=== PATIENT | male | born 1970 | race Caucasian/White ===

== ENCOUNTER 2022-03-12 09:03 | Outpatient (CLI) | payer OTHER, SELFPAY ==
[2022-03-12 14:07] LABS: Chloride* 104 mmol/L (96-114); Potassium* 4.6 mmol/L (3.6-5.1); Sodium* 140 mmol/L (135-149)
[2022-03-12 14:10] LABS: Blood Urea Nitrogen* 16 mg/dL (7-30); Carbon Dioxide* 29 mmol/L (20-32); Cholesterol* 171 mg/dL (90-199); Creatinine* 0.9 mg/dL (0.5-1.5); Estimated Glomerular Filt Rate 103 ml/min; Glucose* 104 mg/dL (60-115)
[2022-03-12 14:11] LABS: Calcium* 9.4 mg/dL (8.4-10.6); HDL Cholesterol* 47 mg/dL (>=40); LDL Cholesterol Calculated 96 mg/dL (<100); Triglycerides* 142 mg/dL (40-149)
== END 2022-03-12 09:04 | disposition home or self-care (01) ==
PROVIDERS: PCP Family Medicine; Visit Provider Family Medicine
DX: Z00.00 Encounter for general adult medical examination without abnormal findings (principal); I10 Essential (primary) hypertension; Z13.6 Encounter for screening for cardiovascular disorders
CPT/HCPCS: 80048; 80061

== ENCOUNTER 2022-04-03 13:26 | Outpatient (CLI) | payer OTHER, SELFPAY ==
--- OUTSIDE RECORDS SUMMARY | 2022-04-03 13:31 | XMS_ITS | Clinical Summary ---
:1970 Author Organization [employer] [facility] [place] [address] Care Team Providers Name Role Phone Vernal, [facility] Primary Care Provider Unavailable Allergies Active Allergy Reactions Severity Noted Date Comments Homeopathic Products Runny Nose 08/26/2007 Medications Medication Sig Dispensed Refills Start Date End Date Status albuterol HFA (PROAIR Inhale 2 Puffs by 8.5 g 0 11/28/2010 Active HFA) 90 mcg/Actuation mouth every 6 inhaler hours if needed for Wheezing. Every 4-6 hours as needed lisinopril (PRINIVIL; Take 10 mg by 0 Active ZESTRIL) 10 mg tablet mouth once daily. albuterol HFA Inhale 2 Puffs by 1 Inhaler 1 12/17/2014 Active (VENTOLIN HFA) 90 mouth every 4 mcg/actuation hours if needed inhalerIndications: for Shortness Of Asthma exacerbation Breath or Wheezing. Active Problems Problem Noted Date Smoker Allergic rhinitis Asthma Family History Medical History Relation Name Comments Heart Disease Father Hypertension Father Relation Name Status Comments Father Alive Mother Alive Social History Tobacco Use Types Packs/Day Years Used Date Smoking Tobacco: Every Day Cigarettes 1 Smokeless Tobacco: Never Comments: one and a half packs per day Alcohol Use Standard Drinks/Week Comments No 0 (1 standard drink = 0.6 oz pure alcoho l) Sex Assigned at Date Recorded Not on file Obstetrics History Last Filed Vital Signs Vital Sign Reading Time Taken Comments Blood Pressure 140/78 12/17/2014 12:48 AM CDT Pulse 84 12/17/2014 12:48 AM CDT Temperature 36.9 ??C (98.5 ??F) 12/17/2014 12:48 AM CDT Respiratory Rate 18 12/17/2014 12:48 AM CDT Oxygen Saturation 96% 12/17/2014 1:11 AM CDT Inhaled Oxygen Concentration - - Weight 150.1 kg (331 lb) 12/17/2014 12:48 AM CDT Height 193 cm (6' 3.98) 12/17/2014 12:48 AM CDT Body Mass Index 40.31 12/17/2014 12:48 AM CDT Plan of Treatment Health Maintenance Due Date Last Done Comments COVID-19 vaccine series (#1) 1970 Tdap 1981 Depression screening for age 12+ 1982 HIV for age 15-65 1985 BMI (ht and wt on same day) for age 18+ 02/18/1988 Hepatitis C screening for age 18-79 02/18/1988 Tetanus booster 1990 Colonoscopy through age 75 2015 Lipids for age 45-75 2015 Zoster (shingles) series for age 50+ (1 of 2) 02/18/2020 Influenza for age 50-64 12/21/2021 Results Not on filefrom Last 3 Months Insurance Payer Benefit Plan / Subscriber ID Effective Dates Phone Addre ss Type Group BLUE CROSS BLUE [employer]OSS OF [id number] 2014-Present [id number] [place] [address] (Work) [id number] Advance Directives Latest Code Status on File Code Status Date Activated Date Inactivated Comments Full Code 08/18/2007 7:07 PM 08/19/2007 12:43 AM Care Teams Gas Truck Driver Relationship Specialty Start Date End Date Iman Bolanos PCP - General 05/12/10
--- OUTSIDE RECORDS SUMMARY | 2022-04-03 13:31 | XMS_ITS | Encounter Summary ---
:1970 Author Organization [place] Address [facility] [address] Care Team Providers Name Role Phone Yessenia Cerna DO Primary Care Provider [phone] Reason for Visit Reason Comments Urgent Care URI 2 weeks head pressure behind ears, hoarse voice Sinus Problem Asthma Encounter Details Date Type Department Care Team Description 08/31/[address] [facility] Mayda Adams Acute sin usitis with Urgent Care Fariba Melgar PA-C symptoms > [id number] (Primary Dx) [place] [address] [phone] Social History Tobacco Use Types Packs/Day Years Used Date Smoking Tobacco: Every Day Cigarettes 1 20 Smokeless Tobacco: Former Alcohol Use Standard Drinks/Week Comments No 0 (1 standard drink = 0.6 oz pure alcoho l) last etoh 07/10/12 Sex Assigned at Date Recorded Not on file documented as of this encounter Last Filed Vital Signs Vital Sign Reading Time Taken Comments Blood Pressure 120/82 08/31/2017 4:30 PM CDT Pulse 69 08/31/2017 4:30 PM CDT Temperature 36.7 ??C (98 ??F) 08/31/2017 4:30 PM CDT Respiratory Rate 20 08/31/2017 4:30 PM CDT Oxygen Saturation 97% 08/31/2017 4:30 PM CDT Inhaled Oxygen Concentration - - Weight 146.1 kg (322 lb) 08/31/2017 4:30 PM CDT Height - - Body Mass Index 39.72 09/29/2012 2:08 PM CDT documented in this encounter Progress Notes Mayda Adams PA-C - 08/31/2017 4:25 PM CDT SUBJECTIVE: Jasvir Lisa is a 47 year old male presenting with a chief complaint of Chief Complaint Patient presents with ??? Urgent Care ??? URI 2 weeks head pressure behind ears, hoarse voice ??? Sinus Problem ??? Asthma He is a new patient of [facility]. URI Adult Onset of symptoms was 2 week(s) ago. Course of illness is worsening. Severity moderate Current and Associated symptoms: cough - productive, facial pain/pressure and nasal congestion Treatment measures tried include Tylenol/Ibuprofen, Decongestants and Antihistamine. Predisposing factors include HX of asthma. Review of Systems Constitutional: Negative for chills and fever. HENT: Positive for congestion, rhinorrhea, sinus pain and sinus pressure. Negative for ear pain and sore throat. Respiratory: Positive for cough. Negative for shortness of breath. Gastrointestinal: Negative for diarrhea, nausea and vomiting. Skin: Negative for rash. Past Medical History: Diagnosis Date ??? Mild intermittent asthma allergies ??? Psoriasis better off ETOH Family History Problem Relation Age of Onset ??? C.A.D. Father ??? Psoriasis Father ??? Asthma Paternal Grandfather ??? C.A.D. Paternal Grandfather Current Outpatient Prescriptions Medication Sig Dispense Refill ??? albuterol (ALBUTEROL) 108 (90 BASE) MCG/ACT inhaler Inhale 1-2 puffs into the lungs every 4 hours as needed PT NEEDS UPDATED ASTHMA ACTION PLAN (Patient not taking: Reported on 08/31/2017) 3 Inhaler3 ??? albuterol (PROAIR HFA/PROVENTIL HFA/VENTOLIN HFA) 108 (90 Base) MCG/ACT Inhaler Inhale 2 puffs into the lungs ??? cefuroxime (CEFTIN) 500 MG tablet Take 1 tablet (500 mg) by mouth 2 times daily for 7 days 14 tablet 0 ??? lisinopril (PRINIVIL/ZESTRIL) 10 MG tablet Take 10 mg by mouth Social History Substance Use Topics ??? Smoking status: Current Every Day Smoker Packs/day: 1.00 Years: 20.00 Types: Cigarettes ??? Smokeless tobacco: Former User ??? Alcohol use No Comment: last etoh 07/10/12 OBJECTIVE BP 120/82 Pulse 69 Temp 98 ??F (36.7 ??C) (Oral) Resp 20 Wt 322 lb (146.1 kg) SpO2 97% BMI 39.72 kg/m2 Physical Exam Constitutional: He appears well-developed and well-nourished. No distress. HENT: Head: Normocephalic and atraumatic. Right Ear: Tympanic membrane normal. Left Ear: Tympanic membrane normal. Nose: Right sinus exhibits maxillary sinus tenderness. Left sinus exhibits maxillary sinus tenderness. Mouth/Throat: Oropharynx is clear and moist. Eyes: EOM are normal. Pupils are equal, round, and reactive to light. Neck: Normal range of motion. Neck supple. Cardiovascular: Normal rate, regular rhythm and normal heart sounds. Pulmonary/Chest: Effort normal. No respiratory distress. He has wheezes (mild expiratory over the lung martins). He has no rales. Neurological: He is alert. Skin: Skin is warm and dry. Psychiatric: He has a normal mood and affect. Nursing note and vitals reviewed. Labs: No results found for this or any previous visit (from the past 24 hour(s)). X-Ray was not done. ASSESSMENT: ICD-10-CM 1. Acute sinusitis with symptoms > 10 days J01.90 cefuroxime (CEFTIN) 500 MG tablet Medical Decision Making: Differential Diagnosis: URI Adult/Peds: Sinusitis, Viral syndrome and Viral upper respiratory illness Serious Comorbid Conditions: Adult: Asthma PLAN: Acute sinusitis: Ceftin is prescribed. Tylenol or Motrin as needed for pain. Follow-up if any worsening symptoms. Patient understands and agrees with the plan. Mild Asthma: Stable. Keep monitoring. Follow-up if any worsening symptoms. Followup: If not improving or if condition worsens, follow up with your Primary Care Provider documented in this encounter Plan of Treatment Not on filedocumented as of this encounter Visit Diagnoses Diagnosis Acute sinusitis with symptoms > 10 days - Primary Acute sinusitis, unspecified documented in this encounter Care Teams Corking Machine Operator Relationship Specialty Start Date End Date Yessenia Cerna DO PCP - General Family Practice 05/31/11 07/20/18 AKBAR PATEL [address] [place] [address] documented as of this encounter
--- OUTSIDE RECORDS SUMMARY | 2022-04-03 13:31 | XMS_ITS | Encounter Summary ---
:1970 Author Organization [place] Address [facility] [place] [address] Care Team Providers Name Role Phone Yessenia Cerna DO Primary Care Provider [phone] Reason for Visit Reason Comments Dot Physical Encounter Details Date Type Department Care Team Description 12/12/[address] [facility] Prasanna Merino M D ERRONEOUS [facility] [address] ENCOUNTER--DISREGARD [address] [place] [address] (Primary Dx) [place] [address] [place], [place] [phone] (Wo rk) [address] [phone] Social History Tobacco Use Types Packs/Day Years Used Date Smoking Tobacco: Every Day Cigarettes 1 20 Smokeless Tobacco: Former Alcohol Use Standard Drinks/Week Comments No 0 (1 standard drink = 0.6 oz pure alcoho l) last etoh 07/10/12 Sex Assigned at Date Recorded Not on file documented as of this encounter Progress Notes Prasanna Merino MD - 12/12/2012 3:17 PM CDT Cancelled/no show documented in this encounter Plan of Treatment Not on filedocumented as of this encounter Visit Diagnoses Diagnosis ERRONEOUS ENCOUNTER--DISREGARD - Primary documented in this encounter Care Teams Scroll Shear Operator Relationship Specialty Start Date End Date Yessenia Cerna DO PCP - General Family Practice 05/31/11 07/20/18 [facility] NE[facility] FOSSIL [address] [place] [address] documented as of this encounter
--- OUTSIDE RECORDS SUMMARY | 2022-04-03 13:31 | XMS_ITS | Clinical Summary ---
:1970 Author Organization [facility] Address [address] [place] [address]. [place] [address] Care Team Providers Name Role Phone No Ref-Primary, Physician Primary Care Provider [phone] Allergies No known active allergies Medications Medication Sig Dispensed Refills Start Date End Date Status albuterol (ALBUTEROL) Inhale 1-2 puffs 3 Inhaler 3 07/04/2013 Active 108 (90 BASE) MCG/ACT into the lungs inhalerIndications: every 4 hours as Mild intermittent needed PT NEEDS asthma UPDATED ASTHMA ACTION PLAN albuterol (PROAIR Inhale 2 puffs 0 11/28/2010 Active HFA/PROVENTIL into the lungs HFA/VENTOLIN HFA) 108 (90 Base) MCG/ACT Inhaler lisinopril Take 10 mg by 0 Activ e (PRINIVIL/ZESTRIL) 10 mouth MG tablet FLOVENT HFA 110 MCG/ACT INHALE 2 PUFFS BY 0 06/14/19 20 Active inhaler MOUTH TWICE DAILY metFORMIN (GLUCOPHAGE) 0 04/20/2019 Active 850 MG tablet Active Problems Problem Noted Date CARDIOVASCULAR SCREENING; LDL GOAL LESS THAN 160 05/31 Mild intermittent asthma Overview: allergies Psoriasis Immunizations Name Administration Dates Next Due TDAP Vaccine (Boostrix) 12/29/2010 Family History Medical History Relation Comments CMaximoAMaximoD. Father Psoriasis Father Asthma Paternal Grandfather CMaximoAMaximoD. Paternal Grandfather Relation Status Comments Father Paternal Grandfather Social History Tobacco Use Types Packs/Day Years Used Date Smoking Tobacco: Every Day Cigarettes 1 20 Smokeless Tobacco: Former Alcohol Use Standard Drinks/Week Comments No 0 (1 standard drink = 0.6 oz pure alcoho l) last etoh 07/10/12 Sex Assigned at Date Recorded Not on file Last Filed Vital Signs Vital Sign Reading Time Taken Comments Blood Pressure 130/72 06/27/2019 1:25 PM BANKMAN Pulse 79 06/27/2019 1:25 PM BANKMAN Temperature 36.8 ??C (98.2 ??F) 06/27/2019 1:25 PM BANKMAN Respiratory Rate 20 08/31/2017 4:30 PM CDT Oxygen Saturation 96% 06/27/2019 1:25 PM BANKMAN Inhaled Oxygen Concentration - - Weight 146.1 kg (322 lb) 08/31/2017 4:30 PM CDT Height 191.8 cm (6' 3.5) 09/29/2012 2:08 PM CDT Body Mass Index 39.72 09/29/2012 2:08 PM CDT Plan of Treatment Health Maintenance Due Date Last Done Comments ADVANCE CARE PLANNING 1970 ANNUAL REVIEW OF HM ORDERS 1970 ASTHMA CONTROL TEST 1970 CT COLONOGRAPHY 1970 FIT-DNA (Cologuard) 1970 FIT 1970 FLEX SIG 1970 HEPATITIS B IMMUNIZATION (1 1970 of 3 - 3-dose series) LIPID 1970 YEARLY PREVENTIVE VISIT 1970 COVID-19 Vaccine (#1) 1970 COLONOSCOPY 02/18/1980 COLORECTAL CANCER SCREENING 02/18/1980 HIV SCREENING 1985 HEPATITIS C SCREENING 02/18/1988 ASTHMA ACTION PLAN 09/29/2013 09/29/2012, 12/29/2010 Pneumococcal Vaccine: 08/26/2015 08/25/2014 Pediatrics (0 to 5 Years) and At-Risk Patients (6 to 64 Years) (2 - PCV) LUNG CANCER SCREENING 02/18/2020 ZOSTER IMMUNIZATION (1 of 02/18/2020 2) DTAP/TDAP/TD IMMUNIZATION 12/29/2020 12/29/2010 (2 - Td or Tdap) PHQ-2 (once per calendar 04/22/2021 year) INFLUENZA VACCINE (#1) 2021 01/24/2019, 03/24/2018, 02/18/2017, Additional history exists IPV IMMUNIZATION Aged Out No longer eligi ble based on patient 's age to complete this topic MENINGITIS IMMUNIZATION Aged Out No longe r eligible based on patient 's age to complete this topic Insurance Payer Benefit Plan / Subscriber ID Effective Phone Address T ype Group Dates [facility] [id number] 2017-Pres [phone] [address] O OPEN ACCESS ent [address] [place] [address] Care Teams Spray Gun Operator Relationship Specialty Start Date End Date No Ref-Primary, Physician PCP - General 06/27/19
--- OUTSIDE RECORDS SUMMARY | 2022-04-03 13:31 | XMS_ITS | Encounter Summary ---
:1970 Author Organization [facility] Address [address] [place] [address]. [place] [address] Care Team Providers Name Role Phone Yessenia Cerna DO Primary Care Provider [phone] Reason for Visit Reason Comments Recheck Medication Asthma Encounter Details Date Type Department Care Team Description 09/29/2012 Office Visit [facility] Prasanna Merino M D Mild intermittent Clinic [address] asthma (Primary Dx) [address] [place] [address] [place], [place] [phone] (Wo rk) [address] [phone] Social History Tobacco Use Types Packs/Day Years Used Date Smoking Tobacco: Every Day Cigarettes 1 20 Smokeless Tobacco: Former Alcohol Use Standard Drinks/Week Comments No 0 (1 standard drink = 0.6 oz pure alcoho l) last etoh 07/10/12 Sex Assigned at Date Recorded Not on file documented as of this encounter Last Filed Vital Signs Vital Sign Reading Time Taken Comments Blood Pressure 144/78 09/29/2012 2:08 PM CDT Pulse 93 09/29/2012 2:08 PM CDT Temperature 37 ??C (98.6 ??F) 09/29/2012 2:08 PM CDT Respiratory Rate - - Oxygen Saturation 96% 09/29/2012 2:08 PM CDT Inhaled Oxygen Concentration - - Weight 155.4 kg (342 lb 11.2 oz) 09/29/2012 2:08 PM CDT Height 191.8 cm (6' 3.5) 09/29/2012 2:08 PM CDT Body Mass Index 42.27 09/29/2012 2:08 PM CDT documented in this encounter Patient Instructions Patient InstructionsPrasanna Merino MD - 09/29/2012 2:34 PM CDT Images from the original note were not included. [facility] To reach your care team during and after hours: [phone] To reach our pharmacy: [phone] Clinic Hours Our clinic hours are: Saturday 7:30 am to 7:00 pm Saturday 7:30 am to 5:00 pm Saturday 8:00 am to 12:00 pm Pharmacy Hours Our pharmacy hours are: Saturday - Saturday 8:00 am to 7:00 pm Saturday 9:00 am to 1:00 pm Saturday 9:00 am to 1:00 pm There is also information available at our web site: [email or web address] If your provider ordered any lab tests and you do not receive the results within 10 business days, please call the clinic. If you need a medication refill please contact your pharmacy. Please allow 2 business days for your refill to be completed. Our clinic offers telephone visits and e visits. Please ask one of your team members to explain more. Use [employer] (secure email communication and access to your chart) to send your primary care providera message or make an appointment. Ask someone on your Team how to sign up for [employer]. documented in this encounter Progress Notes Prasanna Merino MD - 09/29/2012 8:44 AM CDT SUBJECTIVE: Jasvir Lisa is a 42 year old male who presents to clinic today for the following health issues: Medication Followup of Asthma ?? Taking Medication as prescribed: yes ?? Side Effects: None ?? Medication Helping Symptoms: Yes Overall doing well, act = 21, has 2 chinese shepards who can increase sx if careful, albuterol works well, Since stopping etoh, psoriasis much improved Bilateral ankle swelling x 1 day - after being in unusual cramped position - better after 24-48 hrs - no cp - no sob - minimal indentation wrinkle - no pnd - no calf pain - works outside with physical work. BP Readings from Last 3 Encounters: 09/29/12 144/78 05/31/11 126/86 04/12/11 130/88 Wt Readings from Last 4 Encounters: 09/29/12 342 lb 11.2 oz (155.448 kg) 05/31/11 309 lb 6.4 oz (140.343 kg) 04/12/11 302 lb 6.4 oz (137.168 kg) 12/29/10 293 lb (132.904 kg) Health Maintenance Health Maintenance Due Topic Date Due ??? Lipid Monitoring Q1 Year( No Inbasket) 1971 ??? Asthma Control Test Q6 Mos (No Inbasket) 06/29/2011 ??? Asthma Action Plan Q1 Yr (No Inbasket) 12/30/2011 Current Problem List Patient Active Problem List Diagnosis ??? Mild intermittent asthma ??? Psoriasis ??? CARDIOVASCULAR SCREENING; LDL GOAL LESS THAN 160 Past Medical History Past Medical History Diagnosis Date ??? Mild intermittent asthma allergies ??? Psoriasis better off ETOH Past Surgical History Past Surgical History Procedure Date ??? Appendectomy 2008 Current Medications Current Outpatient Prescriptions Medication Sig ??? albuterol (ALBUTEROL) 108 (90 BASE) MCG/ACT inhaler Inhale 1-2 puffs into the lungs every 4 hours as needed. PT NEEDS UPDATED ASTHMA ACTION PLAN Allergies No Known Allergies Immunizations Immunization History Administered Date(s) Administered ??? TDAP (BOOSTRIX AGES 10-64) 12/29/2010 Family History Family History Problem Relation Age of Onset ??? C.A.D. Father ??? Psoriasis Father ??? Asthma Paternal Grandfather ??? C.A.D. Paternal Grandfather Social History History Social History ??? Marital Status: Spouse Name: Xochilt Number of Children: 1 ??? Years of Education: 11 Occupational History ??? Social History Main Topics ??? Smoking status: Current Everyday Smoker -- 1.0 packs/day for 20 years Types: Cigarettes ??? Smokeless tobacco: Former User ??? Alcohol Use: No last etoh 07/10/12 ??? Drug Use: No ??? Sexually Active: Yes -- Female partner(s) Other Topics Concern ??? Parent/Sibling W/ Cabg, Mi Or Angioplasty Before 65f 55m? Yes ??? Caffeine Concern Yes 2-3 cups, 2-3 cans daily ??? Exercise Yes 2-3 miles daily, active at work ??? Seat Belt Yes Social History Narrative ??? No narrative on file All above reviewed and updated, all stable unless otherwise noted Recent labs reviewed Problem list and histories reviewed & adjusted, as indicated. Additional history: as documented ROS: C: NEGATIVE for fever, chills, change in weight I: NEGATIVE for worrisome rashes, moles or lesions E: NEGATIVE for vision changes or irritation E/M: NEGATIVE for ear, mouth and throat problems R: NEGATIVE for significant cough or SOB CV: NEGATIVE for chest pain, palpitations or peripheral edema GI: NEGATIVE for nausea, abdominal pain, heartburn, or change in bowel habits : NEGATIVE for frequency, dysuria, or hematuria M: NEGATIVE for significant arthralgias or myalgia N: NEGATIVE for weakness, dizziness or paresthesias E: NEGATIVE for temperature intolerance, skin/hair changes H: NEGATIVE for bleeding problems P: NEGATIVE for changes in mood or affect Problem list, Medication list, Allergies, and Medical/Social/Surgical histories reviewed in EPIC andupdated as appropriate. OBJECTIVE: BP 144/78 Pulse 93 Temp 98.6 ??F (37 ??C) (Oral) Ht 6' 3.5 (1.918 m) Wt 342 lb 11.2 oz (155.448 kg) BMI 42.27 kg/m2 SpO2 96% Body mass index is 42.27 kg/(m^2). GENERAL: healthy, alert and no distress EYES: Eyes grossly normal to inspection, extraocular movements - intact, and PERRL HENT: ear canals- normal; TMs- normal; Nose- normal; Mouth- no ulcers, no lesions NECK: no tenderness, no adenopathy, no asymmetry, no masses, no stiffness; thyroid- normal to palpation RESP: lungs clear to auscultation - no rales, no rhonchi, no wheezes CV: regular rates and rhythm, normal S1 S2, no S3 or S4 and no murmur, no click or rub - ABDOMEN: soft, no tenderness, no hepatosplenomegaly, no masses, normal bowel sounds MS: extremities- no gross deformities noted, trace to 1+ edema - improving - no calf tenderness SKIN: no suspicious lesions, no rashes NEURO: strength and tone- normal, sensory exam- grossly normal, mentation- intact, speech- normal, reflexes- symmetric BACK: no CVA tenderness, no paralumbar tenderness PSYCH: Alert and oriented times 3; speech- coherent , normal rate and volume; able to articulate logical thoughts, able to abstract reason, no tangential thoughts, no hallucinations or delusions, affect- normal LYMPHATICS: ant. cervical- normal, post. cervical- normal, axillary- normal, supraclavicular- normal, inguinal- normal Diagnostic test results: none ASSESSMENT/PLAN: 1. Mild intermittent asthma (493.90) ASTHMA CONTROL TEST, Asthma Action Plan (Please complete E-AAP by signing order and opening link in order details), albuterol (ALBUTEROL) 108 (90 BASE) MCG/ACT inhaler, DISCONTINUED: albuterol (ALBUTEROL) 108 (90 BASE) MCG/ACT inhaler Discussed treatment/modality options, including risk and benefits, he desires positional edema, low salt, good position choices, cpx fasting soon, act/aap, albuterol refills done, continue no etoh, consider tobacco cessation, consider diuretics. All diagnosis above reviewed and noted above, otherwise stable. See [employer] orders for further details. Follow up in 1 month(s) and as needed. Health Maintenance Due Topic Date Due ??? Lipid Monitoring Q1 Year( No Inbasket) 1971 ??? Asthma Control Test Q6 Mos (No Inbasket) 06/29/2011 ??? Asthma Action Plan Q1 Yr (No Inbasket) 12/30/2011 See Patient Instructions reports that he has been smoking Cigarettes. He has a 20 pack-year smoking history. He has quit using smokeless tobacco. Tobacco Cessation Action Plan: Information offered: Patient not interested at this time Estimated Body mass index is 42.27 kg/(m^2) as calculated from the following: Height as of this encounter: 6' 3.5(1.918 m). Weight as of this encounter: 342 lb 11.2 oz(155.448 kg). Weight management plan: diet and exercise. Prasanna Merino MD [facility] documented in this encounter Nursing Notes 09/29/2012 2:00 PM CDT >> SHILPI [place]FMUTH Mon Sep 29, 2012 2:15 PM Patient presents with: Recheck Medication - Asthma Initial BP 144/78 Pulse 93 Temp 98.6 ??F (37 ??C) (Oral) Ht 6' 3.5 (1.918 m) Wt 342 lb 11.2oz (155.448 kg) BMI 42.27 kg/m2 SpO2 96% Estimated Body mass index is 42.27 kg/(m^2) as calculated from the following: Height as of this encounter: 6' 3.5(1.918 m). Weight as of this encounter: 342 lb 11.2 oz(155.448 kg). BP completed using cuff size large right Arm July Niranjan SMA documented in this encounter Plan of Treatment Not on filedocumented as of this encounter Procedures Procedure Name Priority Date/Time Associated Diagnosis Comme nts ASTHMA ACTION PLAN Routine 09/29/2012 2:03 PM CDT Mild intermi ttent asthma documented in this encounter Visit Diagnoses Diagnosis Mild intermittent asthma - Primary Unspecified asthma documented in this encounter Care Teams Charge Out Clerk Relationship Specialty Start Date End Date Yessenia Cerna DO PCP - General Family Practice 05/31/11 07/20/18 AKBAR PATEL [address] [place] [address] documented as of this encounter
--- OUTSIDE RECORDS SUMMARY | 2022-04-03 13:31 | XMS_ITS | Encounter Summary ---
:1970 Author Organization [place] Address [facility] [place] [address] Care Team Providers Name Role Phone Yessenia Cerna DO Primary Care Provider [phone] Reason for Visit Reason Onset Date Comments Refill Request 09/24/2012 Ventolin HFA 108 mcg Encounter Details Date Type Department Care Team Description 09/24/2012 Telephone [facility] Yessenia Cerna ll Request Clinic Sam Cespedes DO (Ventolin HFA 108 mcg) [address] [place] [address] [place] [phone] [address] [place], [place] [address] (Wo rk) Social History Tobacco Use Types Packs/Day Years Used Date Smoking Tobacco: Every Day Cigarettes 1 20 Smokeless Tobacco: Former Alcohol Use Standard Drinks/Week Comments No 0 (1 standard drink = 0.6 oz pure alcoho l) Sex Assigned at Date Recorded Not on file documented as of this encounter Miscellaneous Notes Telephone Encounter - Prasanna Merino MD - 09/24/2012 1:01 PM CDT rx done - await follow up Telephone Encounter - Ericka Garg RN - 09/24/2012 10:33 AM CDT Please see below. Please see 09/08/12 Refill Encounter. Pt has appt. Scheduled with Dr. Merino for 09/29/12 at 1400 for Med Check - Asthma. Unable to refill Ventolin HFA per RN protocol. Please refill if appropriate. Thanks! Ericka Garg, RN [facility] Triage Telephone Encounter - Anny Whitley - 09/24/2012 8:34 AM CDT Prescription refill request via fax from [facility] [facility] for Ventolin HFA 108 mcg/ACT AERS 108 (90 Base) Anny Whitley, Patient Salon Sales Consultant documented in this encounter Plan of Treatment Not on filedocumented as of this encounter Visit Diagnoses Diagnosis Mild intermittent asthma - Primary Unspecified asthma documented in this encounter Care Teams Fire Alarm Dispatcher Relationship Specialty Start Date End Date Yessenia Cerna DO PCP - General Family Practice 05/31/11 07/20/18 [address] [place] [address] documented as of this encounter
--- OUTSIDE RECORDS SUMMARY | 2022-04-03 13:31 | XMS_ITS | Encounter Summary ---
:1970 Author Organization [place] Address [address] [place] [address]. [place] [address] Care Team Providers Name Role Phone Yessenia Cerna DO Primary Care Provider [phone] Reason for Visit Reason Onset Date Comments Refill Request 07/04/2013 ventolin 108mcg/act Encounter Details Date Type Department Care Team Description 07/04/2013 Refill [facility] Prasanna Merino M D Refill Request Clinic [place] (ventolin 108mcg/act) [address] [place] [address] [address] [place] [address] Social History Tobacco Use Types Packs/Day Years Used Date Smoking Tobacco: Every Day Cigarettes 1 20 Smokeless Tobacco: Former Alcohol Use Standard Drinks/Week Comments No 0 (1 standard drink = 0.6 oz pure alcoho l) last etoh 07/10/12 Sex Assigned at Date Recorded Not on file documented as of this encounter Miscellaneous Notes Telephone Encounter - Shireen Pearson CMA - 07/06/2013 10:24 AM CDT Pt informed to scheduled PX - asked to call back to complete ACT over the phone Letter, AAP and ACT mailed to pt Telephone Encounter - Prasanna Merino MD - 07/04/2013 12:40 PM CDT rx done, please do AAP/ACT over the phone and advise due for a fasting CPX Telephone Encounter - Tejas Goldman - 07/04/2013 12:31 PM CDT Last Fill Date: 06/08/13 Last Fill Quantity: 54 Last Office Visit: 12/12/12 Tejas Goldman, Green House Manager [facility] [phone] documented in this encounter Plan of Treatment Not on filedocumented as of this encounter Visit Diagnoses Diagnosis Mild intermittent asthma - Primary Unspecified asthma documented in this encounter Care Teams Transmitter Supervisor Relationship Specialty Start Date End Date Yessenia Cerna DO PCP - General Family Practice 05/31/11 07/20/18 [address] [place] [address] documented as of this encounter
--- OUTSIDE RECORDS SUMMARY | 2022-04-03 13:31 | XMS_ITS | Encounter Summary ---
:1970 Author Organization [place] Address [facility] [place] [address] Care Team Providers Name Role Phone No Ref-Primary, Physician Primary Care Provider [phone] Reason for Visit Reason Comments Urgent Care URI Cough and sinus pressure x1 week- burning sensation on lungs, started to have pain on upper abdominal pain due coughing, post nasal drip, feels like discharge coming from s inus is going down to lungs Encounter Details Date Type Department Care Team Description 06/27/2019 Office Visit [facility] Mayda Adams Acute sin usitis with symptoms > 10 days (Primary Dx); Urgent Care Fariba Melgar PA-C Mild persistent asthmatic bronchitis wit h acute exacerbation [address] [facility] [address] [facility] [place] [address] [phone] Social History Tobacco Use Types Packs/Day Years [...] Comments Blood Pressure 130/72 06/27/2019 1:25 PM INFORMATION SYSTEMS SECURITY ANALYST Pulse 79 06/27/2019 1:25 PM INFORMATION SYSTEMS SECURITY ANALYST Temperature 36.8 ??C (98.2 ??F) 06/27/2019 1:25 PM INFORMATION SYSTEMS SECURITY ANALYST Respiratory Rate - - Oxygen Saturation 96% 06/27/2019 1:25 PM INFORMATION SYSTEMS SECURITY ANALYST Inhaled Oxygen Concentration - - Weight - - Height - - Body Mass Index - - documented in this encounter Progress Notes Mayda Adams PA-C - 06/27/2019 1:10 PM CST SUBJECTIVE: Jasvir Lisa is a 49 year old male presenting with a chief complaint of Chief Complaint Patient presents with ??? Urgent Care ??? URI Cough and sinus pressure x1 week- burning sensation on lungs, started to have pain on upper abdominal pain due coughing, post nasal drip, feels like discharge coming from sinus is going down to lungs He is an established patient of [facility]. URI Adult Onset of symptoms was 2 week(s) ago. Course of illness is worsening. Severity moderate Current and Associated symptoms: cough, facial pain/pressure, nasal congestion, headache, post nasaldrip, chest tightness, wheezing Treatment measures tried include Inhaler (name: albuterol),tylenol, Ibuprofen.. Predisposing factors include HX of asthma. No fevers or chills. Review of Systems Constitutional: Negative for chills and fever. HENT: Positive for congestion, postnasal drip, rhinorrhea, sinus pressure and sinus pain. Negative for sore throat. Respiratory: Positive for cough and chest tightness. Negative for shortness of breath. Gastrointestinal: Negative for diarrhea, nausea and vomiting. Neurological: Positive for headaches. Past Medical History: Diagnosis Date ??? Mild intermittent asthma allergies ??? Psoriasis better off ETOH Family History Problem Relation Age of Onset ??? C.A.D. Father ??? Psoriasis Father ??? Asthma Paternal Grandfather ??? C.A.D. Paternal Grandfather Current Outpatient Medications Medication Sig Dispense Refill ??? albuterol (ALBUTEROL) 108 (90 BASE) MCG/ACT inhaler Inhale 1-2 puffs into the lungs every 4 hours as needed PT NEEDS UPDATED ASTHMA ACTION PLAN 3 Inhaler 3 ??? amoxicillin-clavulanate (AUGMENTIN) 875-125 MG tablet Take 1 tablet by mouth 2 times daily for 10 days 20 tablet 0 ??? FLOVENT HFA 110 MCG/ACT inhaler INHALE 2 PUFFS BY MOUTH TWICE DAILY ??? lisinopril (PRINIVIL/ZESTRIL) 10 MG tablet Take 10 mg by mouth ??? metFORMIN (GLUCOPHAGE) 850 MG tablet ??? predniSONE (DELTASONE) 20 MG tablet Take 2 tablets (40 mg) by mouth daily for 5 days 10 tablet 0 ??? albuterol (PROAIR HFA/PROVENTIL HFA/VENTOLIN HFA) 108 (90 Base) MCG/ACT Inhaler Inhale 2 puffs into the lungs Social History Tobacco Use ??? Smoking status: Current Every Day Smoker Packs/day: 1.00 Years: 20.00 Pack years: 20.00 Types: Cigarettes ??? Smokeless tobacco: Former User Substance Use Topics ??? Alcohol use: No Alcohol/week: 0.0 standard drinks Comment: last etoh 07/10/12 OBJECTIVE BP 130/72 (BP Location: Right arm, Patient Position: Chair, Cuff Size: Adult Regular) Pulse 79 Temp 98.2 ??F (36.8 ??C) (Oral) SpO2 96% Physical Exam Vitals signs and nursing note reviewed. Constitutional: General: He is not in acute distress. Appearance: He is well-developed. HENT: Head: Normocephalic and atraumatic. Right Ear: Tympanic membrane and external ear normal. Left Ear: Tympanic membrane and external ear normal. Nose: Congestion present. Comments: Nasal Passages with boggy turbinates. Maxillary sinuses are tender to percussion Mouth/Throat: Mouth: Mucous membranes are moist. Pharynx: Oropharynx is clear. Eyes: Conjunctiva/sclera: Conjunctivae normal. Neck: Musculoskeletal: Normal range of motion. Cardiovascular: Rate and Rhythm: Regular rhythm. Heart sounds: Normal heart sounds. Pulmonary: Effort: Pulmonary effort is normal. No respiratory distress. Breath sounds: Wheezing (Mild expiratory wheezes over the lung martins) present. No rhonchi or rales. Skin: General: Skin is warm and dry. Neurological: Mental Status: He is alert. Labs: No results found for this or any previous visit (from the past 24 hour(s)). X-Ray was not done. ASSESSMENT: ICD-10-CM 1. Acute sinusitis with symptoms > 10 days J01.90 amoxicillin-clavulanate (AUGMENTIN) 875-125 MG tablet 2. Mild persistent asthmatic bronchitis with acute exacerbation J45.31 predniSONE (DELTASONE) 20 MG tablet PLAN: Acute sinusitis: Augmentin Rx. Tylenol or motrin prn headache . Follow up if any worsening symptoms.Patient agrees. Asthmatic bronchitis: Prednisone is prescribed. Albuterol inhaler as needed for chest tightness/wheezing. Continue Flovent inhaler as scheduled. Follow-up if any worsening symptoms. Patient agrees withthe plan Followup: If not improving or if condition worsens, follow up with your Primary Care Provider RMATION SYSTEMS SECURITY ANALYST documented in this encounter Plan of Treatment Not on filedocumented as of this encounter Visit Diagnoses Diagnosis Acute sinusitis with symptoms > 10 days - Primary Acute sinusitis, unspecified Mild persistent asthmatic bronchitis wit h acute exacerbation documented in this encounter Care Teams Biomass Facilitator Relationship Specialty Start Date End Date No Ref-Primary, Physician PCP - General 06/27/19 documented as of this encounter
--- OUTSIDE RECORDS SUMMARY | 2022-04-03 13:31 | XMS_ITS | Encounter Summary ---
:1970 Author Organization [place] Address [address] [place] [address]. [place] [address] Care Team Providers Name Role Phone No Ref-Primary, Physician Primary Care Provider [phone] Encounter Details Date Type Department Care Team Description 06/27/2019 Travel Social History Tobacco Use Types Packs/Day Years Used Date Smoking Tobacco: Every Day Cigarettes 1 20 Smokeless Tobacco: Former Alcohol Use Standard Drinks/Week Comments No 0 (1 standard drink = 0.6 oz pure alcoho l) last etoh 07/10/12 Sex Assigned at Date Recorded Not on file documented as of this encounter Plan of Treatment Not on filedocumented as of this encounter Visit Diagnoses Not on filedocumented in this encounter Care Teams Regional Branch Manager Relationship Specialty Start Date End Date No Ref-Primary, Physician PCP - General 06/27/19 documented as of this encounter
--- OUTSIDE RECORDS SUMMARY | 2022-04-03 13:32 | XMS_ITS | Encounter Summary ---
:1970 Author Organization [place] Address [facility] [place] [address] Care Team Providers Name Role Phone Unavailable Primary Care Provider Unavailable Reason for Visit Reason Comments RECHECK Follow up Urgent care at [place] for laceration left pinky Encounter Details Date Type Department Care Team Description 04/12/2011 Office Visit [facility] [address] [place], [place] [address] [facility] [address] [address] [phone] [place] [address] (Wo rk) Social History Tobacco Use Types Packs/Day Years Used Date Smoking Tobacco: Every Day Cigarettes 1 20 Smokeless Tobacco: Former Alcohol Use Standard Drinks/Week Comments No 0 (1 standard drink = 0.6 oz pure alcoho l) Sex Assigned at Date Recorded Not on file documented as of this encounter Last Filed Vital Signs Vital Sign Reading Time Taken Comments Blood Pressure 130/88 04/12/2011 10:54 AM SITE PROJECT MANAGER Pulse 85 04/12/2011 10:54 AM SITE PROJECT MANAGER Temperature 36.4 ??C (97.5 ??F) 04/12/2011 10:54 AM SITE PROJECT MANAGER Respiratory Rate 20 04/12/2011 10:54 AM SITE PROJECT MANAGER Oxygen Saturation 98% 04/12/2011 10:54 AM SITE PROJECT MANAGER Inhaled Oxygen Concentration - - Weight 137.2 kg (302 lb 6.4 oz) 04/12/2011 10:54 AM SITE PROJECT MANAGER Height 193 cm (6' 4) 04/12/2011 10:54 AM SITE PROJECT MANAGER Body Mass Index 36.81 04/12/2011 10:54 AM SITE PROJECT MANAGER documented in this encounter Progress Notes Yessenia Cerna, - 04/12/2011 11:02 AM CST Images from the original note were not included. SUBJECTIVE: Jasvir Lisa is a 41 year old male, here alone, in today for: Urgent Care follow up ?? Admission date: Monday 04/09 ?? Hospital: [place] ?? Reason for visit: Cut it with a folding knife at work on 04/07 Wrapped it and went to urgent care. ?? ER summary reviewed: YES Medication changes: antibiotic ointment and taking Keflex 4 times daily for 10 days. Orthopedics evaluated as well, no tendon damage. ?? Follow up needed for today: recheck ?? Current status: Still sore; stings. Oozes sometimes (pt works with his hands) has been trying to keep it covered. Had Tdap done one month ago. ROS: 5 point ROS completed and negative except noted above. Patient Active Problem List Diagnoses Code ??? Mild intermittent asthma 493.90AJ ??? Psoriasis 696.1V Past Surgical History Procedure Date ??? Appendectomy 2009 History Substance Use Topics ??? Smoking status: Current Everyday Smoker -- 1.0 packs/day for 20 years Types: Cigarettes ??? Smokeless tobacco: Former User ??? Alcohol Use: No Family History Problem Relation Age of Onset ??? C.A.D. Father ??? Psoriasis Father ??? Asthma Paternal Grandfather Current outpatient prescriptions Medication Sig ??? albuterol (PROAIR HFA) 108 (90 BASE) MCG/ACT inhaler Inhale 2 puffs into the lungs every 6 hoursas needed. ??? albuterol (PROAIR HFA) 108 (90 BASE) MCG/ACT inhaler Inhale 1-2 puffs into the lungs every 4 hours as needed for shortness of breath / dyspnea. No Known Allergies OBJECTIVE: BP 130/88 Pulse 85 Temp(Src) 97.5 ??F (36.4 ??C) (Oral) Resp 20 Ht 6' 4 (1.93 m) Wt 302 lb 6.4 oz (137.168 kg) BMI 36.81 kg/m2 SpO2 98% GENERAL:: healthy, alert and no distress MS: palmar surface of left 5th digit there is a laceration 1.5cm near dip. Full range of motion of fingers, hand, neurovascularly intact. Granulation present; no evidence of infection. Diagnostic testing:(labs, x-rays, EKG) - None ASSESSMENT/PLAN: 1. Finger injury (959.5C) hydrocodone-acetaminophen 5-325 MG per tablet Discussed well outside window for sutures. Healing by secondary intention. Reviewed signs/symptoms of infection. Advised antibiotic ointment once daily. Keep clean and dry. Tube gauze dressing applied today. Discussed signs/symptoms requiring urgent evaluation. Side affects of pain med reviewed. Risks, benefits and alternatives of treatments discussed. Plan agreed on. Followup:as needed Will call, return to clinic, or go to ED if worsening or symptoms not improving as discussed. See patient instructions. Health Maintenance Due Topic Date Due ??? LIPID MONITORING Q1 YEAR( NO INBASKET) 1971 Health maintenance reviewed/updated? Yes Yessenia Cerna DO PROJECT MANAGER documented in this encounter Nursing Notes 04/12/2011 10:45 AM CST >> ANJALI LOCKE Sandy Apr 12, 2011 11:02 AM Patient presents with: RECHECK - Follow up Urgent care at [place] for laceration left pinky Initial BP 130/88 Pulse 85 Temp(Src) 97.5 ??F (36.4 ??C) (Oral) Resp 20 Ht 6' 4 (1.93 m) Wt 302 lb 6.4 oz (137.168 kg) BMI 36.81 kg/m2 SpO2 98% Estimated Body mass index is 36.81 kg/(m^2) as calculated from the following: Height as of this encounter: 6' 4(1.93 m). Weight as of this encounter: 302 lb 6.4 oz(137.168 kg).. BP completed using cuff size: large rt arm Don Locke MA documented in this encounter Plan of Treatment Not on filedocumented as of this encounter Visit Diagnoses Diagnosis Finger injury - Primary Injury, other and unspecified, finger documented in this encounter
--- OUTSIDE RECORDS SUMMARY | 2022-04-03 13:32 | XMS_ITS | Encounter Summary ---
:1970 Author Organization [place] Address [facility] [place] [address] Care Team Providers Name Role Phone Yessenia Mcdaniel DO Primary Care Provider [phone] Reason for Visit Reason Comments Sinus Problem 2-3 days. Encounter Details Date Type Department Care Team Description [facility]/31[facility]2011 [facility] Hardy J, DO bronchospasm (Primary [address] [facility] [place] [address] [facility] [address] [address] [phone] [place] [address] (Wo rk) Social History Tobacco [...] Sign Reading Time Taken Comments Blood Pressure 126/86 05/31/2011 11:21 AM AIR TWISTER WINDER Pulse 84 05/31/2011 11:21 AM AIR TWISTER WINDER Temperature 36.4 ??C (97.5 ??F) 05/31/2011 11:21 AM AIR TWISTER WINDER Respiratory Rate 20 05/31/2011 11:21 AM AIR TWISTER WINDER Oxygen Saturation 97% 05/31/2011 11:21 AM AIR TWISTER WINDER Inhaled Oxygen Concentration - - Weight 140.3 kg (309 lb 6.4 oz) 05/31/2011 11:21 AM AIR TWISTER WINDER Height 193 cm (6' 4) 05/31/2011 11:21 AM AIR TWISTER WINDER Body Mass Index 37.66 05/31/2011 11:21 AM AIR TWISTER WINDER documented in this encounter Progress Notes Yessenia Mcdaniel, DO - 05/31/2011 11:26 AM CST Images from the original note were not included. SUBJECTIVE: Jasvir Lisa is a 41 year old male patient, here alone, in today for: Acute illness concerns: Dry cough-Sore by ribs through back of the yriql-FKM-hsrktdgr-stuffy-sinus pressure-ears plugged. No fever. No n,v,d Onset: - 2-3 days ?? Fever no ?? Chills/Sweats: YES ?? Headache (location?): YES-forehead ?? Sinus Pressure: YES ?? Conjunctivitis: no ?? Ear Pain: YES: both ears plugged ?? Rhinorrhea: YES ?? Congestion: YES ?? Sore Throat: no ?? Cough: [id number] ?? Wheeze: YES ?? Decreased Appetite: YES ?? Nausea: no ?? Vomiting: no ?? Diarrhea: no ?? Dysuria/Freq.: no ?? Fatigue/Achiness: YES ?? Sick/Strep Exposure: YES coworkers Therapies tried: Dayquil, allergy relieve Outcome: minor relief Using Albuterol 2x daily. Last used this AM. Patient Active Problem List Diagnoses Code ??? [...] ??? Psoriasis Father ??? Asthma Paternal Grandfather Outpatient prescriptions marked as taking for the 05/31/11 encounter (Office Visit) with YESSENIA MCDANIEL: albuterol (PROAIR HFA) 108 (90 BASE) MCG/ACT inhaler Inhale 2 puffs into the lungs every 6 hours as needed. Disp: Rfl: No Known Allergies OBJECTIVE: BP 126/86 Pulse 84 Temp(Src) 97.5 ??F (36.4 ??C) (Oral) Resp 20 Ht 6' 4 (1.93 m) Wt 309 lb 6.4 oz (140.343 kg) BMI 37.66 kg/m2 SpO2 97% GENERAL: no apparent distress EYES: Conjunctiva are not injected, no discharge. EARS: Left TM -retracted Right TM -no erythema, no effusion, not bulged. NOSE: clear discharge, no sinus tenderness THROAT: mild erythema, no exudate, no lesions NECK: supple, no adenopathy. CARDIAC: regular rate and rhythm, no murmur RESP: diffuse wheezes bilaterally, moving air however. No crackles heard. Diagnostic testing:(labs, x-rays, EKG) - None ASSESSMENT/PLAN: 1. Acute bronchitis with bronchospasm (466.0B) predniSONE (DELTASONE) 20 MG tablet, azithromycin (ZITHROMAX) 250 MG tablet Patient refused nebulization in clinic. Side affects and expected results reviewed of medications. Discussed signs/symptoms requiring urgent evaluation. Follow-up next week, sooner for worsening symptoms. Symptomatic cares and fever control(if indicated) discussed. Risks and benefits of meds discussed. Health Maintenance Due Topic Date Due ??? LIPID MONITORING Q1 YEAR( NO INBASKET) 1971 Health maintenance reviewed/updated? Yes Yessenia Mcdaniel DO TWISTER WINDER documented in this encounter Nursing Notes 05/31/2011 11:15 AM CST >> ANJALI Delgado May 31, 2011 11:26 AM Patient presents with: Sinus Problem - 2-3 days. Initial BP 126/86 Pulse 84 Temp(Src) 97.5 ??F (36.4 ??C) (Oral) Resp 20 Ht 6' 4 (1.93 m) Wt 309 lb 6.4 oz (140.343 kg) BMI 37.66 kg/m2 SpO2 97% Estimated Body mass index is 37.66 kg/(m^2) as calculated from the following: Height as of this encounter: 6' 4(1.93 m). Weight as of this encounter: 309 lb 6.4 oz(140.343 kg).. BP completed using cuff size: large lt arm Don Welch MA documented in this encounter Plan of Treatment Not on filedocumented as of this encounter Visit Diagnoses Diagnosis Acute bronchitis with bronchospasm - Loraine conawy Acute bronchitis documented in this encounter Care Teams Conservation Of Resources Commissioner Relationship Specialty Start Date End Date Yessenia Mcdaniel DO PCP - General Family Practice 05/31/11 07/20/18 [address] [place] [address] [place] [address] documented as of this encounter
--- OUTSIDE RECORDS SUMMARY | 2022-04-03 13:32 | XMS_ITS | Encounter Summary ---
:1970 Author Organization [facility] Address [address] [place] [address]. [place] [address] Care Team Providers Name Role Phone Unavailable Primary Care Provider Unavailable Reason for Visit Reason Comments Arm Pain Encounter Details Date Type Department Care Team Description 12/29/2010 Office Visit [facility] Prasanna Merino M D Vaccine for uxiqidjqxu-jyntqwq-eeuvjgtvo , combined (Primary Dx); Clinic [address] Lateral epicondylitis; [address] [place] [address] Mild intermittent asthma; [place] [address] Psoriasis [place], [place] [phone] (Wo rk) [id number] [phone] Social History Tobacco Use Types Packs/Day Years Used Date Smoking Tobacco: Every Day Cigarettes 1 20 Smokeless Tobacco: Former Alcohol Use Standard Drinks/Week Comments No 0 (1 standard drink = 0.6 oz pure alcoho l) Sex Assigned at Date Recorded Not on file documented as of this encounter Last Filed Vital Signs Vital Sign Reading Time Taken Comments Blood Pressure 152/92 12/29/2010 1:55 PM CDT Pulse 114 12/29/2010 1:55 PM CDT Temperature 36.9 ??C (98.5 ??F) 12/29/2010 1:55 PM CDT Respiratory Rate 20 12/29/2010 1:55 PM CDT Oxygen Saturation 97% 12/29/2010 1:55 PM CDT Inhaled Oxygen Concentration - - Weight 132.9 kg (293 lb) 12/29/2010 1:55 PM CDT Height 193 cm (6' 4) 12/29/2010 1:55 PM CDT Body Mass Index 35.67 12/29/2010 1:55 PM CDT documented in this encounter Progress Notes Underdahl, Riana - 12/29/2010 1:46 PM CDT Images from the original note were not included. SUBJECTIVE: Jasvir Lisa is a 40 year old male, here alone, in today for: Elbow Pain- ?? Onset:1 month(s) ago - using elbow sleeve - somewhat helpful - pain with wrist cockup manuevers -no trauma - no swelling - no redness - no warmth ?? Description: Right elbow Patient is: Right handed Character: pain radiation shoulder Constant or intermittent: constant Location: elbow to shoulder Radiation: YES- shoulder ?? Intensity: 12/30 ?? Frequency (if intermittent): Frequency between episodes: not applicable Pain-free between episodes? not applicable ?? History: History of Gout: no not personal- family hx father ?? Accompanying Signs & Symptoms: Pain with activity: all activities , tender to touch Numbness, pain or parethesia in first three fingers: no ?? Precipitating and/or Alleviating factors: Any trauma: repetitive use ?? Progression of Symptoms worse ?? Therapies tried and outcome: pj wrap and ibuprophen with minor relief ?? Patient Active Problem List Diagnoses Code ??? [...] Outpatient prescriptions marked as taking for the 12/29/10 encounter (Office Visit) with PRASANNA MERINO: albuterol (PROAIR HFA) 108 (90 BASE) MCG/ACT inhaler Inhale 2 puffs into the lungs every 6 hours as needed. Disp: Rfl: No Known Allergies OBJECTIVE: BP 152/92 Pulse 114 Temp(Src) 98.5 ??F (36.9 ??C) (Oral) Resp 20 Ht 6' 4 (1.93 m) Wt 293 lb (132.904 kg) BMI 35.67 kg/m2 SpO2 97% GENERAL:: healthy, alert and no distress EYES: Eyes grossly normal to inspection, fundi benign and PERRL HENT: ear canals normal, TM's normal, Nose normal, Mouth- no ulcers, no lesions NECK: no adenopathy, no asymmetry, no masses, and thyroid normal to palpation, supple RESP: lungs clear to auscultation - no rales, no rhonchi, no wheezes CV: regular rates and rhythm, normal S1 S2, no S3 or S4 and no murmur, click or rub - ABDOMEN: soft, no tenderness, no hepatosplenomegaly, no masses, normal bowel sounds MS: extremities normal- no gross deformities noted, no edema - except positive wrist cock up manuevers SKIN: no suspicious lesions, no rashes NEURO: Normal strength and tone, sensory exam grossly normal, mentation intact and speech normal, reflexes symmetric Diagnostic testing:(labs, x-rays, EKG) none ASSESSMENT/PLAN: 1. Vaccine for rsjcznvypc-akicgix-vquartmhv, combined (V06.1G) TDAP ( BOOSTRIX AGES 10-64) 2. Lateral epicondylitis (726.32A) 3. Mild intermittent asthma (493.90AJ) Asthma Action Plan (AAP), ASTHMA CONTROL TEST Discussed treatment/modality options, including risk and benefits - desires heat/ice/stretching & exercise, elbow strap, consider cortisone if not getting better. [facility]. Follow up as needed Recheck bp soon, consider spacer soon They will call, return to clinic, or go to ED if worsening or symptoms not improving as discussed. Health Maintenance Due Topic Date Due ??? LIPID MONITORING Q1 YEAR( NO INBASKET) 1971 ??? TETANUS IMMUNIZATION ( [facility] ASSIGNED) 1982 Health maintenance reviewed/updated? Yes Scribe Disclosure: I, Prasanna Merino, am serving as a scribe; to document services personally performed by Prasanna Merino MD- -based on data collection and the provider's statements to me. Provider Disclosure: I agree with above History, Review of Systems, Physical exam and Plan. I have reviewed the content of the documentation and have edited it as needed. I have personally performed the services documentedhere and the documentation accurately represents those services and the decisions I have made. Electronically signed by: Prasanna eMrino M.D. documented in this encounter Nursing Notes 12/29/2010 1:45 PM CDT >> RIANA PEDERSEN SatDec 29, 2010 2:32 PM Patient is covered under this program for the following reason: Does not qualify >> RIANA PEDERSEN SatDec 29, 2010 1:58 PM Patient presents with: Arm Pain Initial BP 152/92 Pulse 114 Temp(Src) 98.5 ??F (36.9 ??C) (Oral) Resp 20 Ht 6' 4 (1.93 m) Wt 293 lb (132.904 kg) BMI 35.67 kg/m2 SpO2 97% Estimated Body mass index is 35.67 kg/(m^2) as calculated from the following: Height as of this encounter: 6' 4(1.93 m). Weight as of this encounter: 293 lb(132.904 kg).. BP completed using cuff size: large Riana Pedersen MA documented in this encounter Plan of Treatment Not on filedocumented as of this encounter Procedures Procedure Name Priority Date/Time Associated Diagnosis Comme nts ASTHMA ACTION PLAN Routine 12/29/2010 2:14 PM CDT Mild intermi ttent asthma documented in this encounter Visit Diagnoses Diagnosis Vaccine for hrtrhlugiu-wmacfod-xmtvzatnj , combined - Primary Need for prophylactic vaccination with c ombined wzqcybozmi-qjzteqv-jaklsqacp (DTP) vaccine Lateral epicondylitis Lateral epicondylitis of elbow Mild intermittent asthma Unspecified asthma Psoriasis Other psoriasis documented in this encounter
--- OUTSIDE RECORDS SUMMARY | 2022-04-03 13:32 | XMS_ITS | Encounter Summary ---
:1970 Author Organization [facility] Address [facility] [place] [address] Care Team Providers Name Role Phone Yessenia Cerna DO Primary Care Provider Reason for Visit Reason Onset Date Comments Refill Request 12/15/2011 proair Encounter Details Date Type Department Care Team Description 12/15/2011 Refill [facility] Yessenia Cerna R efill Request (proair) Clinic [address] [place] [address] [facility] [address] [address] [phone] [place], [place] [address] (Wo rk) Social History Tobacco Use Types Packs/Day Years Used Date Smoking Tobacco: Every Day Cigarettes 1 20 Smokeless Tobacco: Former Alcohol Use Standard Drinks/Week Comments No 0 (1 standard drink = 0.6 oz pure alcoho l) Sex Assigned at Date Recorded Not on file documented as of this encounter Miscellaneous Notes Telephone Encounter - Ananya Tran - 12/17/2011 10:17 AM CDT Left pt a vm. Ananya Tran Telephone Encounter - Prasanna Merino MD - 12/15/2011 11:51 AM CDT rx done - advise due for complete physical Telephone Encounter - Geno Fu - 12/15/2011 11:47 AM CDT Last Fill Date: 11/16/11 Last Fill Quantity: 8.5 Last Office Visit: 05/31/11 (Dr. Cerna) Pt says he needs today!!! Thank you!! Geno Fu [facility] documented in this encounter Plan of Treatment Not on filedocumented as of this encounter Visit Diagnoses Diagnosis Mild intermittent asthma - Primary Unspecified asthma documented in this encounter Care Teams Instructional Technology Instructor Relationship Specialty Start Date End Date Yessenia Cerna DO PCP - General Family Practice 05/31/11 07/20/18 [facility] [address] [place] [address] documented as of this encounter
--- OUTSIDE RECORDS SUMMARY | 2022-04-03 13:32 | XMS_ITS | Encounter Summary ---
:1970 Author Organization [facility] Address [address] [place] [address]. [place] [address] Care Team Providers Name Role Phone Yessenia Cerna DO Primary Care Provider Reason for Visit Reason Onset Date Comments Refill Request 09/08/2012 Ventolin HFA inhaler Encounter Details Date Type Department Care Team Description 09/08/[address] [facility] Prasanna Merino M D Refill Request Clinic [address] (Ventolin HFA inhaler) [address] [place] [address] [address] [place] [address] Social History Tobacco Use Types Packs/Day Years Used Date Smoking Tobacco: Every Day Cigarettes 1 20 Smokeless Tobacco: Former Alcohol Use Standard Drinks/Week Comments No 0 (1 standard drink = 0.6 oz pure alcoho l) Sex Assigned at Date Recorded Not on file documented as of this encounter Miscellaneous Notes Telephone Encounter - Ericka Garg RN - 09/17/2012 11:31 AM CDT Noted. Letter mailed to pt. Will await pt to contact the clinic. Ericka Garg RN [facility] Triage Telephone Encounter - Yessenia Cerna DO - 09/17/2012 11:00 AM CDT Letter completed and printed. Yessenia Cerna DO Telephone Encounter - Ericka Garg RN - 09/17/2012 9:51 AM CDT Have attempted to call pt x3. Please review pended letter and sign if appropriate. Thanks! [facility] Triage Telephone Encounter - Ericka Garg RN - 09/12/2012 8:40 AM CDT LM for pt at [phone] to call back today. Please see below. [facility] Triage Telephone Encounter - Ericka Garg RN - 09/11/2012 12:16 PM CDT LM for pt at [phone] to call back today. Please see below. [facility] Triage Telephone Encounter - Ericka Garg RN - 09/09/2012 12:12 PM CDT LM for pt at [phone] to call back today. Please see below. Pt's BHAVANA 05/31/11 with CM. Pt needs toschedule appt. And complete ACT and AAP. Ericka Garg RN [facility] Triage Telephone Encounter - Ricky Graham RP - 09/08/2012 2:08 PM CDT Will approve for one fill only, patient needs appt and/or labs. Due for AAP and ACT (last in 2010). Will route to clinic pool to help with these tests. Etienne Graham, PharmD [facility] Pharmacist [phone] Telephone Encounter - Kevon Alva - 09/08/2012 1:01 PM CDT Last Fill Date: 08/07/2012 Last Fill Qty: 1 inhaler Last Office Visit: 05/31/2011 (Nehemiah) Date of Last Asthma Action Plan Letter: 12/29/2010 Date of last Asthma Control Test (ACT): 12/29/2010 Score of Last Asthma Control Test (ACT): 23 Date of Last Spirometry Test: n/a Kevon Alva [facility]. [facility] documented in this encounter Plan of Treatment Not on filedocumented as of this encounter Visit Diagnoses Diagnosis Mild intermittent asthma - Primary Unspecified asthma documented in this encounter Care Teams Lead Refiner Relationship Specialty Start Date End Date Yessenia Cerna DO PCP - General Family Practice 05/31/11 07/20/18 [facility] [place] [address] [place] [address] documented as of this encounter
[2022-04-03 17:36] LABS: Chloride* 106 mmol/L (96-114); Sodium* 138 mmol/L (135-149)
[2022-04-03 17:37] LABS: Potassium* 4.5 mmol/L (3.6-5.1)
[2022-04-03 17:39] LABS: Creatinine* 0.9 mg/dL (0.5-1.5); Estimated Glomerular Filt Rate 103 ml/min
[2022-04-03 17:40] LABS: Blood Urea Nitrogen* 14 mg/dL (7-30); Calcium* 9.2 mg/dL (8.4-10.6); Carbon Dioxide* 25 mmol/L (20-32); Glucose* 93 mg/dL (60-115)
[2022-04-03 17:57] LABS: C Reactive Protein* < 0.5 mg/dL (0.5-1.0)
[2022-04-03 18:08] LABS: Erythrocyte SedimentationRate* 7 mm/hr (2-15)
[2022-04-05 23:19] LABS: Rheumatoid Factor <10 IU/mL (0-14)
[2022-04-06 17:52] LABS: Anti-Nuclear Ab(ANA)IgG ELISA None Detected (None Detected)
== END 2022-04-03 13:27 | disposition home or self-care (01) ==
PROVIDERS: PCP Family Medicine; Visit Provider Family Medicine
DX: I10 Essential (primary) hypertension (principal); M25.531 Pain in right wrist
CPT/HCPCS: 80048; 84550; 85651; 86039; 86140; 86200; 86431

== ENCOUNTER 2023-05-27 13:57 | Outpatient (CLI) | payer OTHER, SELFPAY ==
--- OUTSIDE RECORDS SUMMARY | 2023-05-27 14:10 | XMS_ITS | Clinical Summary ---
Author Name Unknown Organization [facility] Address [place], [place] [address] Care Team Providers Care Dialysis Tech Name Role Phone [facility] Primary Care Provider Jeannette vailable Allergies Active Allergy Reactions Criticality Noted Date Comments Homeopathic Products Runny Nose 08/26/2007 Medications Medication Sig Dispensed Refills Start Date End Date Status albuterol HFA (PROAIR HFA) 90 mcg/Actuation inhaler Inhale 2 Puffs by mouth every 6 hours if needed for Wheezing. Every 4-6 hours as needed 8.5 g 0 11/28/2010 Active lisinopril (PRINIVIL; ZESTRIL) 10 mg tablet Take 10 mg by mouth once daily. 0 Active albuterol HFA (VENTOLIN HFA) 90 mcg/actuation inhalerIndications:As thma exacerbation Inhale 2 Puffs by mouth every 4 hours if needed for Shortness Of Breath or Wheezing. 1 Inhaler 1 12/17/2014 Active Active Problems Problem Noted Date Diagnosed Date Smoker Allergic rhinitis Asthma Family History Medical History Relation Name Comments Heart Disease Father Hypertension Father Relation Name Status Comments Father Alive Mother Alive Social History Tobacco Use Types Packs/Day Years Used Date Smoking Tobacco: Every Day Cigarettes Smokeless Tobacco: Never Comments:one and a half pack s per day Alcohol Use Standard Drinks/Week Comments No 0 (1 standard drink = 0.6 oz pur e alcohol) Sex and Gender Information Value Date Recorded Sex Assigned at Not on file Gender Identity Not on file Sexual Orientation Not on file Obstetrics History Last Filed Vital Signs Vital Sign Reading Time Taken Comments Blood Pressure 140/78 12/17/2014 12:48 AM CDT Pulse 84 12/17/2014 12:48 AM CDT Temperature 36.9 ??C (98.5 ??F) 12/17/2014 12:48 AM C DT Respiratory Rate 18 12/17/2014 12:48 AM CDT [...] age 18+ 02/18/1988 Hepatitis C screening for ag e 18-79 02/18/1988 Tetanus booster 1990 Colonoscopy through age 75 2015 Lipids for age 45-75 2015 Zoster (shingles) series for age 50+ (1 of 2) 02/18/2020 Influenza for age 50-64 12/21/2022 Pneumococcal series for age 6-64 Aged Out No longer eligible based on patient's age to complete this topic Advance Directives Latest Code Status on File Code Status Date Activated Date Inactivated Comments Full Code 08/18/2007 7:07 PM 08/19/2007 12:43 AM Care Teams Dialysis Tech Relationship Specialty Start Date End Date [facility] PCP - General 05/12/10
--- OUTSIDE RECORDS SUMMARY | 2023-05-27 14:10 | XMS_ITS | Referral Summary ---
Author Name Unknown Organization [facility] Address [address] [place] [address]. [place] [address] Care Team Providers Care Environmental Health Officer Name Role Phone No Ref-Primary, Physician Primary Care Provider Allergies No known active allergies Medications Medication Sig Dispensed Refills Start Date End Date Status albuterol (ALBUTEROL) 108 (90 BASE) MCG/ACT inhalerIndications:Mil d intermittent asthma Inhale 1-2 puffs into the lungs every 4 hours as needed PT NEEDS UPDATED ASTHMA ACTION PLAN 3 Inhaler 3 07/04/2013 Active albuterol (PROAIR HFA/PROVENTIL HFA/VENTOLIN HFA) 108 (90 Base) MCG/ACT Inhaler Inhale 2 puffs into the lungs 0 11/28/2010 Active lisinopril (PRINIVIL/ZESTRIL) 10 MG tablet Take 10 mg by mouth 0 Active FLOVENT HFA 110 MCG/ACT inhaler INHALE 2 PUFFS BY MOUTH TWICE DAILY 0 06/14/2019 Active metFORMIN (GLUCOPHAGE) 850 MG tablet 0 04/20/2019 Active Active Problems Problem Noted Date Diagnosed Date CARDIOVASCULAR SCREENING; LDL GOAL LESS THAN 160 05/31/2011 Mild intermittent asthma Overview: allergies Psoriasis Immunizations Name Administration Dates Next Due TDAP Vaccine (Boostrix) 12/29/2010 Social History Tobacco Use Types Packs/Day Years Used Date Smoking Tobacco: Every Day Cigarettes 1 20 Smokeless Tobacco: Former Alcohol Use Standard Drinks/Week Comments No 0 (1 standard drink = 0.6 oz pur e alcohol) last etoh 07/10/12 Sex and Gender Information Value Date Recorded Sex Assigned at Not on file Gender Identity Not on file Sexual Orientation Not on file Last Filed Vital Signs Vital Sign Reading Time Taken Comments Blood Pressure 130/72 06/27/2019 1:25 PM ELECTRICAL TEST ENGINEER Pulse 79 06/27/2019 1:25 PM ELECTRICAL TEST ENGINEER Temperature 36.8 ??C (98.2 ??F) 06/27/2019 1:25 PM CS T Respiratory Rate 20 08/31/2017 4:30 PM CDT Oxygen Saturation 96% 06/27/2019 1:25 PM ELECTRICAL TEST ENGINEER Inhaled Oxygen Concentration - - Weight 146.1 kg (322 lb) 08/31/2017 4:30 PM CDT Height 191.8 cm (6' 3.5) 09/29/2012 2:08 PM CDT Body Mass Index 39.72 09/29/2012 2:08 PM CDT Plan of Treatment Not on file Care Teams Environmental Health Officer Relationship Specialty Start Date End Date No Ref-Primary, Physician PCP - General 06/27/19
--- OUTSIDE RECORDS SUMMARY | 2023-05-27 14:10 | XMS_ITS | Clinical Summary ---
Author Name Unknown Organization [facility] Address [address] [place] [address]. [place] [address] Care Team Providers Care Board Certified Arts Therapist Name Role Phone No Ref-Primary, Physician Primary [...] CMaximoAMaximoD. Father Psoriasis Father Asthma Paternal Grandfather C.A.D. Paternal Grandfather Relation Status Comments Father Paternal [...] Comments Blood Pressure 130/72 06/27/2019 1:25 PM CHAPTER RELATIONS ADMINISTRATOR Pulse 79 06/27/2019 1:25 PM CHAPTER RELATIONS ADMINISTRATOR Temperature 36.8 ??C (98.2 ??F) 06/27/2019 1:25 PM CS T Respiratory Rate 20 08/31/2017 4:30 PM CDT Oxygen Saturation 96% 06/27/2019 1:25 PM CHAPTER RELATIONS ADMINISTRATOR Inhaled Oxygen Concentration - - Weight 146.1 kg (322 lb) 08/31/2017 4:30 PM CDT Height 191.8 cm (6' 3.5) 09/29/2012 2:08 PM CDT Body Mass Index 39.72 09/29/2012 2:08 PM CDT Plan of Treatment Not on file Care Teams Board Certified Arts Therapist Relationship Specialty Start Date End Date No Ref-Primary, Physician PCP - General 06/27/19
== END 2023-05-27 13:58 | disposition home or self-care (01) ==
PROVIDERS: PCP Family Medicine; Visit Provider Family Medicine
DX: I10 Essential (primary) hypertension (principal); Z12.5 Encounter for screening for malignant neoplasm of prostate
CPT/HCPCS: 80048; G0103